=== PATIENT | female | born 1975 | race Caucasian/White ===

== ENCOUNTER 2023-02-17 23:21 | Emergency (ER) | payer BC, SELFPAY ==
[2023-02-17 23:31] VITALS: BP 128/83; PULSE 77; RESP 16; TEMP 36.4; O2SAT 99
[2023-02-17 23:48] LABS: Basophils % 0.7 %; Eosinophils # 0.2 10^3/uL (0.0-0.8); Eosinophils % 2.5 %; Hematocrit 40.3 % (37.0-47.0); Hemoglobin 13.2 g/dL (11.5-15.3); Lymphocytes # 1.2 10^3/uL (0.8-4.8); Mean Corpuscular HGB Conc 32.8 g/dL (30.0-36.0); Mean Corpuscular Hemoglobin 28.9 pg (28.0-34.0); Mean Corpuscular Volume 88.4 fl (81-99); Mean Platelet Volume 9.7 fL (7.4-10.4); Monocytes # 0.5 10^3/uL (0.2-0.9); Monocytes % 7.5 %; Neutrophils # 4.14 10^3/uL (1.8-7.7); Neutrophils % 69.1 %; Nucleated Red Blood Cells % 0 %; Platelet Count 270 10^3/cmm (130-400); Red Blood Count 4.56 10^6/uL (4.1-5.3); Red Cell Distribution Width 12.7 % (12.1-15.1)
[2023-02-18 00:05] LABS: Alanine Aminotransferase 14 U/L (0-33); Albumin Level 4.2 g/dL (3.5-5.2); Alkaline Phosphatase 82 U/L (35-105); Anion Gap 14.8 (5-19); Aspartate Amino Transferase 14 U/L (0-32); Blood Urea Nitrogen 18 mg/dL (6-20); Calcium 9.1 mg/dL (8.5-10.5); Carbon Dioxide 25 mmol/L (22-29); Chloride 103 mmol/L (98-107); Globulin 3.4 g/dL (1.3-4.6); Glucose 94 mg/dL (65-115); Lipase 45 U/L (13-60); Osmolality Calculated 290 mOsm/kg (285-295); Potassium 3.8 mmol/L (3.5-5.1); Sodium 139 mmol/L (136-145); Total Bilirubin 0.2 mg/dL (0.15-1.2); Total Protein 7.6 g/dL (6.6-8.7)
[2023-02-18 00:16] LABS: HCG, Serum Qual Negative (Negative)
[2023-02-18 00:26] LABS: Urine Color Red (Yellow)
[2023-02-18 00:27] LABS: Urine Appearance Cloudy (CLEAR); pH Urine 5 (5-7)
[2023-02-18 00:28] LABS: Add Urine Microscopic? YES; Bilirubin Urine 3+ (Negative); Blood Urine Trace (Negative); Glucose Urine UA Norm (Normal); Ketones Urine Negative (Negative); Leukocyte Esterase Urine Negative (Negative); Nitrate Urine Positive (Negative); Protein Urine 3+ (Negative); Urobilinogen Urine 4+ mg/dL (Negative)
[2023-02-18 00:30] LABS: RBC Urine 25-40 /hpf (0-2); WBC Urine 25-40 /hpf (0-5)
[2023-02-18 00:31] LABS: Amorphous Sediment Urine 2+ /hpf; Mucus Urine 2+ /hpf
[2023-02-18 00:32] LABS: Squamous Epithelial Cell Urine 0-4 /hpf (0-5)
[2023-02-18 00:33] LABS: Add Urine Culture? Yes; Bacteria Urine TRACE /hpf
--- NOTE | 2023-02-18 00:57 | CTR_ITS ---
PROCEDURE INFORMATION: Exam: CT Abdomen And Pelvis Without Contrast Exam date and time: 02/18/2023 1:05 AM Age: 47 years old Clinical indication: Abdominal pain; Other: Bladder area; Prior surgery; Surgery date: 6+ months; Surgery type: Gastric bypass, complete hysterectomy; Additional info: Abd pain TECHNIQUE: Imaging protocol: Computed tomography of the abdomen and pelvis without contrast. Radiation optimization: All CT scans at this facility use at least one of these dose optimization techniques: automated exposure control; mA and/or kV adjustment per patient size (includes targeted exams where dose is matched to clinical indication); or iterative reconstruction. REPORTING DATA: Count of CT and Cardiac NM exams in prior 12 months: This patient has received 0 known CTs and 0 known cardiac nuclear medicine studies in the 12 months prior to the current study. COMPARISON: No relevant prior studies available. RADIATION DOSE METRICS: Total DLP (mGy-cm): 885.39 FINDINGS: Liver: Normal. No mass. Gallbladder and bile ducts: Normal. No calcified stones. No ductal dilation. Pancreas: Normal. No ductal dilation. Spleen: Normal. No splenomegaly. Adrenal glands: Normal. No mass. Kidneys and ureters: Normal. No hydronephrosis. Stomach and bowel: Gastric surgical sutures. Constipation. Mild diverticulosis without diverticulitis. Appendix: No evidence of appendicitis. Intraperitoneal space: Unremarkable. No free air. No significant fluid collection. Vasculature: Unremarkable. No abdominal aortic aneurysm. Lymph nodes: Unremarkable. No enlarged lymph nodes. Urinary bladder: Unremarkable as visualized. Reproductive: Unremarkable as visualized. Bones/joints: Bilateral chronic bilateral L5 pars interarticularis defects. Soft tissues: Unremarkable. CT/CT kidney stone [id number] IMPRESSION: 1. Negative for acute inflammatory process abdomen or pelvis. 2. Gastric surgical sutures. 3. Constipation. 4. Mild diverticulosis without diverticulitis. 5. Bilateral chronic bilateral L5 pars interarticularis defects.
--- NOTE | 2023-02-18 01:17 | ED_ITS ---
HPI - Abdominal Pain General: Chief Complaint: Abdominal Pain Stated Complaint: ABD Pain Time Seen by Provider: 02/17/23 23:23 Source: patient Mode of arrival: ambulatory Limitations: language barrier History of Present Illness: 47-year-old female states she been having lower abdominal pain throughout the day. States she feels like there is razors in her bladder she denies any dysuria though but states she gets frequent UTIs she has been taking Azo today with minimal relief she denies any radiation of the pain denies any vomiting or diarrhea she denies any fevers. Denies any vaginal discharge she has a history of a hysterectomy.. Associated Symptoms: Denies chills, dysuria and fever(s) Review of Systems Const: Denies: fever(s), chills, body aches or change in appetite Eyes: Denies: blurry vision or eye discomfort ENMT: Denies: throat pain or dental pain Card: Denies: chest pain Resp: Denies: dyspnea GI: Reports: abdominal pain : Denies: dysuria Musc: Denies: neck pain or back pain Skin/Breast: Denies: rash Neuro: Denies: headache(s) Psych: Denies: depression Luis Felipe/Lymph: Denies: easy bruising All/Imm: Denies: urticaria PFSH ED PFSH: Medical History (Updated 02/18/23 @ 01:25 by Eddy Gaines MD) No pertinent past medical history Social History (Updated 02/18/23 @ 01:18 by Eddy Gaines MD) Substance/Drug Use: never Physical Exam Const: COMMON NORMALS: no acute distress, patient oriented x3 and healthy appearing HENMT: COMMON NORMALS: normocephalic and atraumatic HEAD & SCALP: normocephalic and atraumatic Eye: COMMON NORMALS: Equal, round and reactive pupils present and EOMs intact bilaterally PUPIL: Yes Equal, round and reactive pupils present Neck/C-Spine: COMMON NORMALS: full ROM and supple Chest: COMMONS NORMALS: normal inspection of the chest and normal palpation of entire chest wall Resp: COMMON NORMALS: normal respiratory effort, No retractions, No use of accessory muscles and clear to auscultation bilaterally AUSCULTATION: clear to auscultation bilaterally Cardio: COMMON NORMALS: regular rate, regular rhythm and No murmurs present (Cardio) RATE: regular rate RHYTHM: regular rhythm GI: COMMON NORMALS: Normal to inspection, nondistended, normoactive bowel sounds present, Soft to palpation, non-tender and no masses PALPATION: Yes Soft to palpation Extremity: COMMON NORMALS: normal to inspection and full ROM Neuro: COMMON NORMALS: patient oriented x3, moves all extremities and no focal motor deficits Psych: COMMON NORMALS: mental status grossly normal, Normal thought process present and cooperative THOUGHT PROCESS: Normal thought process present Skin: COMMON NORMALS: no rashes or lesions noted and no wounds GENERAL SKIN EXAM: no rashes or lesions noted Course Vital Signs: Vital signs: Vital Signs Temperature 97.5 F L 02/17/23 23:31 Pulse Rate 77 02/17/23 23:31 Respiratory Rate 16 02/17/23 23:31 Blood Pressure 128/83 02/17/23 23:31 Pulse Oximetry 99 02/17/23 23:31 Oxygen Delivery Me thod 02/17/23 23:31 MDM - Abdominal Pain Medical Decision Making Patient presents here with lower abdominal pain with burning in her bladder she likely has a urinary tract infection CT scan here is normal no signs of pyelo nephritis her abdominal exam is benign we will start her on Keflex she is to follow-up with her PCP and return if worsening she understands agrees to plan. Lab Data 02/17/23 23:41 02/17/23 23:41 Labs/Radiology: Radiology Impressions Abdomen/Pelvis CT 02/18/23 00:57 IMPRESSION: 1. Negative for acute inflammatory process abdomen or pelvis. 2. Gastric surgical sutures. 3. Constipation. 4. Mild diverticulosis without diverticulitis. 5. Bilateral chronic bilateral L5 pars interarticularis defects. Laboratory Results WBC 6.0 10^3/uL (4.0-10.0) 02/17/23 23:41 RBC 4.56 10^6/uL (4.1-5.3) 02/17/23 23:41 Hgb 13.2 g/dL (11.5-15.3) 02/17/23 23:41 Hct 40.3 % (37.0-47.0) 02/17/23 23:41 MCV 88.4 fl (81-99) 02/17/23 23:41 MCH 28.9 pg (28.0-34.0) 02/17/23 23:41 MCHC 32.8 g/dL (30.0-36.0) 02/17/23 23:41 RDW 12.7 % (12.1-15.1) 02/17/23 23:41 Plt Count 270 10^3/cmm (130-400) 02/17/23 23:41 MPV 9.7 fL (7.4-10.4) 02/17/23 23:41 Neut % (Auto) 69.1 % 02/17/23 23:41 Lymph % (Auto) 20.0 % 02/17/23 23:41 [place] % (Auto) 7.5 % 02/17/23 23:41 Eos % (Auto) 2.5 % 02/17/23 23:41 Baso % (Auto) 0.7 % 02/17/23 23: Neut # (Auto) 4.14 10^3/uL (1.8-7.7) 02/17/23 23:41 Lymph # (Auto) 1.2 10^3/uL (0.8-4.8) 02/17/23 23:41 [place] # (Auto) 0.5 10^3/uL (0.2-0.9) 02/17/23 23:41 Eos # (Auto) 0.2 10^3/uL (0.0-0.8) 02/17/23 23:41 Baso # (Auto) 0.0 10^3/uL (0.0-0.1) 02/17/23 23:41 Nucleated RBC % (auto) 0 % 02/17/23 23:41 Nucleated RBCs # 0.0 /100WBC 02/17/23 23:41 Sodium 139 mmol/L (136-145) 02/17/23 23:41 Potassium 3.8 mmol/L (3.5-5.1) 02/17/23 23:41 Chloride 103 mmol/L (98-107) 02/17/23 23:41 Carbon Dioxide 25 mmol/L (22-29) 02/17/23 23:41 Anion Gap 14.8 (5-19) 02/17/23 23:41 BUN 18 mg/dL (6-20) 02/17/23 23:41 Creatinine 1.0 mg/dL (0.5-0.9) H 02/17/23 23:41 GFR Calculation 60.0 mL/min (90-130) L 02/17/23 23:41 Glucose 94 mg/dL (65-115) 02/17/23 23:41 Calculated Osmolality 290 mOsm/kg (285-295) 02/17/23 23:41 Calcium 9.1 mg/dL (8.5-10.5) 02/17/23 23:41 Total Bilirubin 0.2 mg/dL (0.15-1.2) 02/17/23 23:41 AST 14 U/L (0-32) 02/17/23 23:41 ALT 14 U/L (0-33) 02/17/23 23:41 Alkaline Phosphatase 82 U/L (35-105) 02/17/23 23:41 Total Protein 7.6 g/dL (6.6-8.7) 02/17/23 23:41 Albumin 4.2 g/dL (3.5-5.2) 02/17/23 23:41 Globulin 3.4 g/dL (1.3-4.6) 02/17/23 23:41 Lipase 45 U/L (13-60) 02/17/23 23:41 HCG, Qual Negative (Negative) 02/17/23 23:41 Urine Color Red (Yellow) 02/17/23 23:46 Urine Appearance Cloudy (CLEAR) A 02/17/23 23:46 Urine pH 5 (5-7) 02/17/23 23:46 Ur Specific [place] 1.020 (1.005-1.030) 02/17/23 23:46 Urine Protein 3+ (Negative) H 02/17/23 23:46 Urine Glucose (UA) Norm (Normal) 02/17/23 23:46 Urine Ketones Negative (Negative) 02/17/23 23:46 Urine Blood Trace (Negative) H 02/17/23 23:46 Urine Nitrate Positive (Negative) H 02/17/23 23:46 Urine Bilirubin 3+ (Negative) H 02/17/23 23:46 Urine Urobilinogen 4+ mg/dL (Negative) H 02/17/23 23:46 Ur Leukocyte Esterase Negative (Negative) 02/17/23 23:46 Urine RBC 25-40 /hpf (0-2) H 02/17/23 23:46 Urine WBC 25-40 /hpf (0-5) H 02/17/23 23:46 Ur Squamous Epith Cells 0-4 /hpf (0-5) H 02/17/23 23:46 Amorphous Sediment 2+ /hpf 02/17/23 23:46 Urine Bacteria Trace /hpf (NONE) 02/17/23 23:46 Urine Mucus 2+ /hpf 02/17/23 23:46 Discharge Plan Discharge Patient Disposition: Home Clinical Impression: Acute cystitis Prescriptions: New hydrocodone-acetaminophen 5-325 mg tablet 1 tab PO Q6H PRN (Reason: pain) Qty: 14 0RF cephalexin 500 mg capsule 500 mg PO TID 7 Days Qty: 21 0RF Naprosyn 500 mg tablet 500 mg PO BID PRN (Reason: pain) Qty: 20 0RF Discharge Orders: Discharge ED (Routine); Ordered 02/18/23 Ordered By: Eddy Gaines Referrals: Opal Reyes FNP [Primary Care Provider] - 1-3 days Discharge Diet: Advance as tolerated Discharge Activity: Resume usual activity Patient Instructions: Urinary Tract Infection in Women (ED), Opioid Safety Coding Level of Care Code ED Triage Technician for Silvia Whaley
[2023-02-18] MEDS: sodium chloride 0.9% 1,000 ML 999 ML IV (01:37)
[2023-02-18] MEDS: ondansetron 2 mg/ML SDV 2 mL 4 MG IVP (01:38)
[2023-02-18] MEDS: cefTRIAXone 1,000 MG in sodium chloride 0.9% (plus) 50 ML 100 MG IV (01:40)
[2023-02-18] MEDS: ketorolac 30 mg/mL INJ 15 MG IVP (01:40)
[2023-02-18 02:15] VITALS: BP 101/56; PULSE 74; RESP 14; O2SAT 95
== END 2023-02-18 02:29 | disposition home or self-care (01) ==
PROVIDERS: Emergency Provider Emergency Medicine; PCP Registered Nurse
DX: N30.00 Acute cystitis without hematuria (principal); K59.00 Constipation, unspecified; K57.90 Diverticulosis of intestine, part unspecified, without perforation or abscess without bleeding
CPT/HCPCS: 74176; 80053; 81001; 81003; 83690; 84703; 85025; 87086; 96365; 96375; 99285; J0696; J1885; J2405; J7030

== ENCOUNTER 2025-02-20 15:53 | Emergency (ER) | payer BC, SELFPAY ==
[2025-02-20 16:03] VITALS: BP 128/83; PULSE 83; RESP 16; TEMP 36.6; O2SAT 99
[2025-02-20] MEDS: diphenhydrAMINE 50 mg/mL SDV 1mL IVP (16:38)
[2025-02-20] MEDS: methylPREDNISolone sod succ 125 mg/2 mL INJ IVP (16:38)
[2025-02-20] MEDS: famotidine 20 mg/2 mL INJ 40 MG IVP (16:38)
--- NOTE | 2025-02-20 16:45 | W.ED.ALLEREA ---
HPI - Allergic Reaction General: Chief complaint: Allergic Reaction Stated complaint: trouble breathing Time Seen by Provider: 02/20/25 16:27 History of Present Illness: HPI narrative: 49-year-old female who presents to the emergency room with concern for allergic reaction. She took her first dose of Macrobid for a urinary tract infection and developed a rash and a tightness in her throat. Lungs are clear on exam. Vitals are normal. No chest pain. No altered mental status. No syncope. She has never had Macrobid in the past. Related Data Home Medications ?Medication ?Instructions ?Recorded ?Confirmed atorvastatin 10 mg tablet 10 mg PO QPM 02/20/25 02/20/25 cephalexin 500 mg capsule 500 mg PO BID 02/20/25 02/20/25 cyanocobalamin (vitamin B-12) 1,000 mcg IM Q30D 02/20/25 02/20/25 1,000 mcg/mL injection solution fluconazole 150 mg tablet 150 mg PO DAILY 02/20/25 02/20/25 levothyroxine 50 mcg tablet 50 mcg PO QAM 02/20/25 02/20/25 nitrofurantoin 100 cap PO BID 02/20/25 02/20/25 monohydrate/macrocrystals 100 mg capsule phentermine 37.5 mg tablet 37.5 mg PO DAILY 02/20/25 02/20/25 trazodone 150 mg tablet 150 mg PO QPM 02/20/25 02/20/25 Previous Rx's ?Medication ?Instructions ?Recorded hydroxyzine HCl 25 mg tablet 25 mg PO BID PRN anxiety #30 tabs 02/20/25 prednisone 20 mg tablet 60 mg (3 x 20 mg) PO DAILY 5 days 02/20/25 #15 tabs Allergies Allergy/AdvReac Type Severity Reaction Status Date / Time nitrofurantoin (From Allergy ALGY-Rash Verified 02/20/25 16:07 Macrobid) Review of Systems Narrative: Constitutional symptoms: Negative except as documented in HPI. Skin symptoms: Negative except as documented in HPI. Eye symptoms: Negative except as documented in HPI. ENMT symptoms: Negative except as documented in HPI. Respiratory symptoms: Negative except as documented in HPI. Cardiovascular symptoms: Negative except as documented in HPI. Gastrointestinal symptoms: Negative except as documented in HPI. Genitourinary symptoms: Negative except as documented in HPI. Musculoskeletal symptoms: Negative except as documented in HPI. Neurologic symptoms: Negative except as documented in HPI. Psychiatric symptoms: Negative except as documented in HPI. Endocrine symptoms: Negative except as documented in HPI. PFSH ED PFSH: Medical History (Updated 02/20/25 @ 17:28 by Kathrin Padilla MD) No pertinent past medical history Social History (Updated 02/18/23 @ 01:18 by Eddy Gaines MD) Substance/Drug Use: never Physical Exam Narrative: EXAM NARRATIVE: General: Alert, no acute distress. Skin: Warm, dry. Head: Normocephalic, atraumatic. Neck: Supple, trachea midline. Eye: Extraocular movements are intact. Ears, nose, mouth and throat: mucosa moist. Cardiovascular: Regular, Normal peripheral perfusion. Respiratory: Lungs are clear to auscultation, respirations are non-labored, breath sounds are equal, Symmetrical chest wall expansion. Gastrointestinal: Soft, Nontender, Non distended Musculoskeletal: Normal ROM, no deformity. Neurological: Alert and oriented, No focal neurological deficit observed. Psychiatric: Cooperative, appropriate mood & affect. Course Vital Signs: Vital signs: Vital Signs Temperature 97.9 F 02/20/25 16:03 Pulse Rate 83 02/20/25 16:03 Respiratory Rate 16 02/20/25 16:03 Blood Pressure 128/83 02/20/25 16:03 Pulse Oximetry 99 02/20/25 16:03 Oxygen Delivery Me thod Room Air 02/20/25 16:03 MDM - Allergic Reaction Medical Decision Making Medical decision making: Differential diagnosis including but not limited to and based on the above HPI, review of systems and physical exam: In a patient with complaints of allergic reaction have concern for anaphylaxis, medication reactions and viral reactions. Orders placed to evaluate differential diagnosis based on the above differential, HPI and physical exam Reexamination: Patient's rash has resolved. Still with some throat tightness. I will transition her care to Dr. Packer at shift change. I suspect she will go home but I would like for her symptoms to be a bit more improved. Assessment and plan: Allergic reaction ?IV Solu-Medrol, Pepcid and Benadryl in the emergency room. - Discharged home - Discussed plan with patient. Answered any questions. - Evaluation and treatment of this problem were appropriate in the emergency setting. No radiology studies performed this visit Discharge Plan Discharge Patient Disposition: Home Clinical Impression: Adverse reaction to drug, Allergic reaction Condition: Stable Prescriptions: New prednisone 20 mg tablet 60 mg PO DAILY 5 Days Qty: 15 0RF hydroxyzine HCl 25 mg tablet 25 mg PO BID PRN (Reason: anxiety) Qty: 30 0RF No Action atorvastatin 10 mg tablet 10 mg PO QPM fluconazole 150 mg tablet 150 mg PO DAILY phentermine 37.5 mg tablet 37.5 mg PO DAILY levothyroxine 50 mcg tablet 50 mcg PO QAM cephalexin 500 mg capsule 500 mg PO BID cyanocobalamin (vitamin B-12) 1,000 mcg/mL solution 1,000 mcg IM Q30D trazodone 150 mg tablet 150 mg PO QPM nitrofurantoin monohyd/m-cryst 100 mg capsule 100 cap PO BID Discharge Orders: Discharge ED (Routine); Ordered 02/20/25 Ordered By: Kathrin Padilla Referrals: Opal Reyes FNP [Primary Care Provider] - Discharge Diet: Usual diet Discharge Activity: Increase activity as tolerated Patient Instructions: Adverse Drug Reaction (ED), General Allergic Reaction (ED), Opioid Safety, Pain Management Activity Restrictions/Additional Instructions: Thank you for choosing [facility] for your healthcare needs today. Please realize this is an emergency room and that we are providing you with a medical screening exam and this may not be complete and all inclusive of all the testing and or work up that you may need to determine your ailment or severity of your illness. You have been screened and evaluated and felt safe for discharge. Health conditions do change or evolve sometimes and as such it is important that you follow up with your Primary Doctor to be re checked, 3-5 days is a general good time frame for follow up. You are always welcome to return to the ED for re assessment if your symptoms are worsening or you have new concerns Print Language: Indonesian Coding Level of Care Code ED Jute Bag Cutting Machine Operator for Silvia Whaley
[2025-02-20 17:37] VITALS: BP 122/84; PULSE 72; RESP 18; O2SAT 100
[2025-02-20] MEDS: cefTRIAXone 1,000 mg SDV 1000 MG IVP (17:37)
--- NOTE | 2025-02-20 17:37 | PC.NURSE ---
discharge delayed d/t provider requesting to wait until patient has improved
--- NOTE | 2025-02-20 17:45 | PC.NURSE ---
pt states rash appears/feels better post medications, but still c/o difficulty swallowing/sore throat.
[2025-02-20 18:17] VITALS: BP 112/69; PULSE 67; RESP 18; O2SAT 96
[2025-02-20 18:38] VITALS: BP 120/74; PULSE 75; O2SAT 100
== END 2025-02-20 18:43 | disposition home or self-care (01) ==
PROVIDERS: Emergency Provider Emergency Medicine; PCP Registered Nurse
DX: T50.905A Adverse effect of unspecified drugs, medicaments and biological substances, initial encounter (principal); T78.40XA Allergy, unspecified, initial encounter; X58.XXXA Exposure to other specified factors, initial encounter
CPT/HCPCS: 96374; 96375; 99284; J0696; J1200; J2919; J3490